=== PATIENT | female | born 1945 | race Caucasian/White ===

== ENCOUNTER 2017-01-07 21:19 | Observation (INO) | payer OTHER ==
--- NOTE | 2017-01-07 21:26 | EDPHY ---
H & P Stated Complaint: CP worse with breathing in and SOB since 3pm today - Personal History Current Tetanus/Diphtheria Vaccine: Unsure Current Tetanus Diphtheria and Acellular Pertussis (TDAP): Unsure - Medical/Surgical History Hx Asthma: No Hx Chronic Respiratory Disease: No Hx Diabetes: No Hx Cardiac Disease: No Hx Renal Disease: No Hx Cirrhosis: No Hx Alcoholism: No Hx HIV/AIDS: No Hx Splenectomy or Spleen Trauma: No Other PMH: MEDICAL- TRANSIENT GLOBAL AMNESIA. SURGICAL- "CERVICAL HERNIATION REPLACED W/ HIP BONE" - Social History Smoking Status: Former smoker Time Seen by Provider: 01/07/17 21:25 Constitutional: Initial Vital Signs Temperature (C) 36.5 C 01/07/17 21:20 Heart Rate 82 01/07/17 21:20 Respiratory Rate 18 01/07/17 21:20 Blood Pressure 139/86 H 01/07/17 21:20 O2 Sat (%) 96 01/07/17 21:20 O2 Delivery Mode Room Air O2 (L/minute) 2 Allergies/Adverse Reactions: No Known Allergies Allergy (Verified 01/07/17 21:22) Home Medications: Medication Instructions Recorded Aspirin 81mg (OTC) 12/25/13 Losartan Potassium 01/07/17 VITAMIN D 01/07/17 Medical Decision Making - Diagnostics Imaging: CT angiogram of chest; no evidence of pulmonary embolism. No pneumonia. Mildly dilated ascending aorta at 4.1 cm with no evidence of dissection or aneurysm. This is otherwise a normal study. Results were discussed with staff radiologist Dr. Chase Marks. (Sanjay Francis) ED Course/Re-evaluation: CHIEF COMPLAINT: Chest pain. HISTORY OF PRESENT ILLNESS: The patient is a 71-year-old female who presents with chest pain. She developed the pain earlier today while walking in the wind. As the day progressed the pain worsened and she found it harder to catch her breath. The pain radiates into her neck. It is described as a pressure. She also has pain with deep breathing. She denies inhaling anything today while in the wind. No recent international travel. She took 2 full strength aspirin for the pain. REVIEW OF SYSTEMS: A 10 point review of systems was performed and is negative with the exception of the elements mentioned in the history of present illness. PHYSICAL EXAM: HR, BP, O2 Sat, RR. Temp noted General Appearance: Alert, well hydrated, appropriate, and non-toxic appearing. Head: Atraumatic without scalp tenderness or obvious injury Eyes: Pupils equal, round, reactive to light and accommodation, EOMI, no trauma , no injection. Ears: Clear bilaterally, no perforation, normal landmarks Nose: Atraumatic, no rhinorrhea, clear. Throat: There is no erythema or exudates, no lesions, normal tonsils, mucus membranes moist. Neck: Supple, 2+ carotid upstroke, nontender, no lymphadenopathy. Respiratory: No retractions, no distress, no wheezes, and no accessory muscle use. Lungs are clear to auscultation bilaterally. Cardiovascular: Regular rate and rhythm, no murmurs, rubs, or gallops. Bilateral carotid, radial, dorsalis pedis, and posterior tibial pulses intact. Good capillary refill all extremities. Gastrointestinal: Abdomen is soft, nontender, non-distended, no masses, no rebound, no guarding, no peritoneal signs. Musculoskeletal: Normal active ROM of all extremities, atraumatic. Neurological: Alert, appropriate, and interactive. The patient has normal DTRs and non-focal cranial nerves, motor, sensory, and cerebellar exam. Skin: No rashes, good turgor, no nodules on palpation. Past medical history: Transient global amnesia. Past surgical history: Cervical herniation. Family history: Her brother had aortic and mitral valve replacement. No heart attacks. Hypertension. Social history: . DIAGNOSTICS/PROCEDURES/CRITICAL CARE TIME: The 12 lead EKG was interpreted by myself. See hard copy and/or "tracemaster" electronic copy for interpretation. Sinus rhythm. Study: PA and Lateral Chest X-ray Indication: Chest pain Results: I viewed the images myself on the PACS system. The radiologist interpretation is pending at the time of this dictation. Study: CTA of the chest. Indication: Chest pain. Results: ____ The study was read by the radiologist, . I viewed the images myself on the PACS system. DIFFERENTIAL DIAGNOSIS: The differential diagnosis for the patient's chest pain included but was not limited to myocardial ischemia, pulmonary embolus, chest wall pain, pleural inflammation, and pulmonary infectious causes. MEDICAL DECISION MAKIN-year-old female with no primary cardiac history presents with chest pain that began earlier today. The pain is described as a pressure and she also has pain with deep breathing and difficulty drawing a breath. An IV was established and labs ordered. We will obtain an EKG and chest x-ray. She has no family cardiac history and is a nonsmoker. BNP elevated at 134. WBC elevated at 13.74. CTA of the chest ordered. This patient still has mild chest pressure but it is exacerbated with exhales more than inhale. Angio of the chest is pending. Dr. Francis will interpret the results. Regardless of the results I believe this patient needs to come in the hospital and get a full rule out if the angio is negative. (Shoaib Arrington) I took over care of this patient at 10:30 p.m.. We are awaiting a CT chest pulmonary angiogram. 11:00 p.m., results of CT angiogram discussed with the patient and family. Plan for admission reviewed. All of their questions were answered. 11:05 p.m., discussed case with hospitalist, Dr. Darling. Patient accepted for admission to the hospitalist service [facility] telemetry observation for rule out. Patient's remaining emergency department course under my care uneventful. Patient admitted in stable and improved condition. (Sanjay Francis) - Data Points Laboratory Results: Laboratory Results 01/07/17 21:30 01/07/17 21:30 01/07/17 01/07/17 21:30 21:30 WBC 13.74 10^3/uL H 10^3/uL (3.80-9.50) RBC 4.50 10^6/uL 10^6/uL (4.18-5.33) Hgb 14.4 g/dL g/dL (12.6-16.3) Hct 41.7 % % (38.0-47.0) MCV 92.7 fL fL (81.5-99.8) MCH 32.0 pg pg (27.9-34.1) MCHC 34.5 g/dL g/dL (32.4-36.7) RDW 13.6 % % (11.5-15.2) Plt Count 241 10^3/uL 10^3/uL (150-400) MPV 9.9 fL fL (8.7-11.7) Neut % (Auto) 69.4 % % (39.3-74.2) Lymph % (Auto) 22.3 % % (15.0-45.0) Greer % (Auto) 6.4 % % (4.5-13.0) Eos % (Auto) 0.9 % % (0.6-7.6) Baso % (Auto) 0.6 % % (0.3-1.7) Nucleat RBC Rel Count 0.0 % % (0.0-0.2) Absolute Neuts (auto) 9.54 10^3/uL H 10^3/uL (1.70-6.50) Absolute Lymphs (auto) 3.06 10^3/uL H 10^3/uL (1.00-3.00) Absolute Monos (auto) 0.88 10^3/uL H 10^3/uL (0.30-0.80) Absolute Eos (auto) 0.13 10^3/uL 10^3/uL (0.03-0.40) Absolute Basos (auto) 0.08 10^3/uL 10^3/uL (0.02-0.10) Absolute Nucleated RBC 0.00 10^3/uL 10^3/uL (0-0.01) Immature Gran % 0.4 % % (0.0-1.1) Immature Gran # 0.05 10^3/uL 10^3/uL (0.00-0.10) Sodium 137 mEq/L mEq/L (134-144) Potassium 3.9 mEq/L mEq/L (3.5-5.2) Chloride 102 mEq/L mEq/L (97-110) Carbon Dioxide 25 mEq/l mEq/l (22-31) Anion Gap 10 mEq/L mEq/L (8-16) BUN 18 mg/dL mg/dL (7-23) Creatinine 0.9 mg/dL mg/dL (0.6-1.0) Estimated GFR > 60 Glucose 104 mg/dL H mg/dL (70-100) Calcium 9.7 mg/dL mg/dL (8.5-10.4) Troponin I 0.014 ng/mL ng/mL (0-0.034) NT-Pro-B Natriuret Pep 134 pg/mL H pg/mL (0-125) Departure - Departure Disposition: [facility] Inpatient Acute Clinical Impression: Chest pain Qualifiers: Chest pain type: unspecified Qualified Code(s): R07.9 - Chest pain, unspecified Additional Instructions: Call Dr. Morgan, cardiology, tomorrow to set up a follow up appointment. You can ask your doctor about PCSK9 inhibitors as we discussed. Return to the emergency department for any serious worsening of condition. Report Scribed for: Shoaib Arrington Report Scribed by: Shiraz Grimes Date of Report: 01/07/17 Time of Report: 21:57
--- NOTE | 2017-01-07 21:35 | CPEKG ---
Heart Rate: 57 RR Interval: 1053 P-R Interval: 196 QRSD Interval: 90 QT Interval: 444 QTC Interval: 433 P [place]: 61 QRS [place]: -41 T Wave [place]: 32 EKG Severity - OTHERWISE NORMAL ECG - EKG Impression: SINUS RHYTHM EKG Impression: LEFT AXIS DEVIATION Electronically Signed By: Shoaib Arrington 07-Jan-2017 22:11:09
[2017-01-07 21:44] LABS: % IMMATURE GRANULYOCYTES 0.4 % (0.0-1.1); ABSOLUTE IMMATURE GRANULOCYTES 0.05 10^3/uL (0.00-0.10); ADD DIFF? NO; ADD MORPH? NO; ADD SCAN? NO; ATYPICAL LYMPHOCYTE FLAG 0 (0-99); FRAGMENT RBC FLAG 0 (0-99); HEMATOCRIT 41.7 % (38.0-47.0); HEMOGLOBIN 14.4 g/dL (12.6-16.3); LEFT SHIFT FLG 0 (0-99); LIPEMIA HEMOLYSIS FLAG 90 (0-99); MEAN CELL HEMOGLOBIN CONCENTR. 34.5 g/dL (32.4-36.7); MEAN CELL VOLUME 92.7 fL (81.5-99.8); MEAN PLATELET VOLUME 9.9 fL (8.7-11.7); PLATELET CLUMPS FLAG 0 (0-99); PLATELET COUNT 241 10^3/uL (150-400); RED CELL DISTRIBUTION WIDTH 13.6 % (11.5-15.2)
[2017-01-07 22:01] LABS: ANION GAP 10 mEq/L (8-16); CALCIUM 9.7 mg/dL (8.5-10.4); CARBON DIOXIDE 25 mEq/l (22-31); CHLORIDE 102 mEq/L (97-110); CREATININE 0.9 mg/dL (0.6-1.0); GLOMERULAR FILTRATION RATE > 60; GLUCOSE 104 mg/dL (70-100); POTASSIUM 3.9 mEq/L (3.5-5.2); SODIUM 137 mEq/L (134-144)
[2017-01-07 22:13] LABS: TROPONIN I 0.014 ng/mL (0-0.034)
[2017-01-07] MEDS ORDERED: IOPAMIDOL (ISOVUE-370) 150 ML BTL IV ONE ×2 (22:23→22:27)
--- NOTE | 2017-01-08 01:23 | GHP ---
DATE OF ADMISSION: 01/07/2017 CHIEF COMPLAINT: Chest pain. HISTORY OF PRESENT ILLNESS: A 71-year-old female with limited past medical history who presents wit h sudden onset of neck and chest tightness after taking a walk in high wind cool weather conditions. Patient reports that she is quite active with frequent extensive exertional activities either on f oot or by bike. Denies any preceding episodes of chest discomfort with this exercise activity. Bradshaw s occasionally experience shortness of breath, which resolves with rest. Patient describes darby hamlin from her walk today in the high wind condition experiencing a tightening of her throat, which then spread across her chest. The tightness remained and prompted her presentation to the emergency dep artment. Patient reports even remnant tightness across her entire chest, left to right, including h er throat during our interview. Was associated with some shortness of breath. Reports it is slight ly position, worse when she lies down, improved when she is sitting up. Denies any associated cough , any recent subjective fevers or chills, myalgias, sore throat, rhinorrhea, headache, vision change s, nausea, vomiting, diarrhea, dysuria, hematuria, or blood in her stools. Patient has not had a st ress test in the past. She has been told she has a murmur but does not recall having an echocardiog billie performed. Patient denies any recent lower extremity edema. PAST MEDICAL HISTORY: 1. Arthritis. 2. Borderline hypertension. SOCIAL HISTORY: Negative for tobacco. Wine occasionally with dinner. Denies marijuana or illicit drugs. FAMILY HISTORY: Positive for heart disease in the father's side of the family. However, her father did live to his 90s. ADVANCED DIRECTIVES: Patient is full cor, full tube. Her would be her medical decision denise er. REVIEW OF SYSTEMS: A 10-point review of systems is negative with the exception of that reported in the HPI. PHYSICAL EXAMINATION: VITAL SIGNS: Blood pressure 138/87, heart rate 73, respiratory rate 16, 96% on 0.5 L, 36.6. GENERAL: This is a very healthy-appearing middle-aged female in no acute distress. HEENT: Notable for moist mucous membranes. Eye exam is negative for any icterus. CARDIAC: Jada ent is regular rate and rhythm. Loud systolic murmur is heard best at the right upper sternal borde r. GASTROINTESTINAL: Positive bowel sounds. ABDOMEN: Soft, and nontender to palpation in all 4 q uadrants. MUSCULOSKELETAL: Negative for any lower extremity edema. SKIN: Negative for any rashes . NEUROLOGIC: She is alert and oriented x3. PSYCHIATRIC: She is pleasant and cooperative on inte rview and examination. DATA: White count 13.7, hematocrit 41.7, platelets of 241. Troponin 0.014. Creatinine 0.9. EKG, which I personally reviewed and interpreted, shows sinus rhythm, leftward axis deviation, with no ac juan m ST-T changes. Chest x-ray shows no acute cardiopulmonary disease. ASSESSMENT AND PLAN: This is a 71-year-old female presenting with chest tightness/pain. 1. Acute chest pain. Patient have limited cardiac risk factors including borderline hypertension. My suspicion for acute cardiac ischemia is low. Will admit the patient for serial troponins and EK Gs. If patient rules out overnight, I think she is a good candidate for cardiac stress testing. 2. Acute shortness of breath. This is associated with chest tightness but patient describes that i t is worse when lying flat. I do note murmur on examination that she reports was barely audible by other practitioners. Will order a transthoracic echocardiogram to rule valvular disease out as a po ssible causative or contributor to her acute presentation. 3. Borderline hypertension. Will continue her home dosing of low-dose losartan. 4. Prophylaxis: Patient is ambulating. 5. Diet: Cardiac. DISPOSITION: I expect in less than 2 midnights the patient's stress testing is negative. I have di scussed the case with the emergency room physician. Patient will be triaged to [facility] for cardiac mon itoring. /[id number]/MODL
--- NOTE | 2017-01-08 03:33 | CPEKG ---
Heart Rate: 73 RR Interval: 822 P-R Interval: 192 QRSD Interval: 86 QT Interval: 428 QTC Interval: 472 P [place]: 63 QRS [place]: -48 T Wave [place]: 38 EKG Severity - ABNORMAL ECG - EKG Impression: SINUS RHYTHM EKG Impression: ATRIAL PREMATURE COMPLEX EKG Impression: LEFT ANTERIOR FASCICULAR BLOCK EKG Impression: ABNRM R PROG, CONSIDER ASMI OR LEAD PLACEMENT Preliminary Awaiting MD Review
[2017-01-08 12:42] VITALS: BP 110/70; PULSE 72; RESP 18; TEMP 97.9; O2SAT 96
--- NOTE | 2017-01-08 12:52 | CPR ---
DATE OF PROCEDURE: 01/08/2017 PROCEDURE: Treadmill stress test. INDICATIONS FOR PROCEDURE: Treadmill stress test done to evaluate chest discomfort related to brisk walking in a stiff wind yesterday causing a lung burning sensation. She has no cardiac risk factors. FINDINGS: Resting EKG shows a regular sinus rhythm with a rate of 71 beats per minute. Resting blood pressure 108/60. She is asymptomatic at rest. TREADMILL PORTION: She was exercised according to the Lion protocol for a total of 9 minutes and 11 seconds. She reached her 85% maximal heart rate of 128. Exercise blood pressure 170/80. She could feel the lung burning discomfort sensation with increased inhalation, but there were no EKG changes. RECOVERY: She recovered spontaneously with no EKG changes. Resting heart rate 82, resting blood pressure 110/80 at 4 minutes post exercise. The discomfort appears to be related to her lungs with heavy inhalation. At this time, she is stable to return to her room. SUMMARY: Normal exercise treadmill test. /[id number]/MODL MTDD
[2017-01-08] MEDS ORDERED: ASPIRIN 325 MG TAB PO PRN (13:26)
--- NOTE | 2017-01-08 15:16 | ECHO ---
[id number] + + [address] : : [place] [address] : : [phone] + + Adult Echocardiographic Report + --+ :Name: STEVAN SCOTT Raquely Date: 01/08/2017 09:35 AM : : Hospital Admission Number: [id number] : :: 1945 Gender: Female Height: 66 in : :Age: 71 yrs Race: WH Weight: 135 lb : : : : BSA: 1.7 meter s2: :History: Murmur : + --+ MMode/2D Measurements \T\ Calculations IVSd: 0.88 cm LVIDd: 3.9 cm FS: 47.6 % Ao root diam: 3.1 cm LVPWd: 0.94 cm LVIDs: 2.0 cm EDV(Teich): 65.5 ml ACS: 1.4 cm ESV(Teich): 13.4 ml LA dimension: 2.8 cm EF(Teich): 79.6 % LVOT diam: 1.9 cm LVOT area: 2.8 cm2 Normal Measurement Values: + + :LVIDd (3.5-5.7cm) IVSd (0.6-1.1cm) LVPWd (0.6-1.1cm) Aortic Root (2.0-3.7cm)Left Atrium (1.5-4.0cm): :LV Vol(d) (76-115ml) LV Vol(s) (29-48ml) Ejec Fraction (50-65%)PV Claudy (0.6- 1.2m/s) TV Claudy (0.4-1.0m/s) : :MV E Claudy (0.8-1.0m/s)MV A Claudy (0.3-1.0m/s)LVOT Claudy (0.7-1.2m/s) Asc Ao Claudy ( 0.9-1.8m/s) : + + Doppler Measurements \T\ Calculations MV E max claudy: Ao V2 max: AI max claudy: LV V1 max: 80.0 cm/sec 180.0 cm/sec 355.0 cm/sec 148.0 cm/sec MV A max claudy: Ao max PG: AI max P.4 mmHgLV V1 max P.5 cm/sec 13.0 mmHg AI dec slope: 8.8 mmHg MV E/A: 1.1 LV V1 mean PG: LINDA(V,D): 2.3 cm2 97.9 cm/sec2 6.0 mmHg AI P1/2t: 1062 msec LV V1 mean: 112.0 cm/sec LV V1 VTI: 32.7 cm SV(LVOT): 92.7 ml PA V2 max: 90.9 cm/sec PA max P.3 mmHg Left Ventricle The left ventricle is normal in size. There is normal left ventricular wall thickness. The left ventricular ejection fraction is normal. There is Doppler evidence for diastolic dysfunction. Ejection Fraction = 79%. The left ventricular wall motion is normal. Right Ventricle The right ventricle is normal in size and function. Atria The left atrial size is normal. Right atrial size is normal. Mitral Valve The mitral valve is normal. There is no evidence of mitral valve prolapse. There is no mitral valve stenosis. There is trace to mild mitral regurgitation. Tricuspid Valve Normal tricuspid valve. No tricuspid regurgitation. Aortic Valve The aortic valve is trileaflet. There is no aortic stenosis. Mild aortic regurgitation. Pulmonic Valve The pulmonic valve is normal in structure and function. There is no pulmonic valvular regurgitation. Great Vessels The aortic root is normal size. Pericardium/Pleural There is no pericardial effusion. Conclusion A complete two-dimensional transthoracic echocardiogram was performed (2D, M-mode, Doppler and color flow Doppler). The left ventricular ejection fraction is normal. There is Doppler evidence for diastolic dysfunction. Ejection Fraction = 79%. The left ventricular wall motion is normal. The right ventricle is normal in size and function. The mitral valve is normal. There is trace to mild mitral regurgitation. Normal tricuspid valve The aortic valve is trileaflet. Mild aortic regurgitation. There is no pericardial effusion. Final Reading Physician: Frantz Walker signed on 01/08/2017 03:15 PM Ordering Physician: Melissa Darling Performed By: Castillo Scott, BRUCECS
--- NOTE | 2017-01-08 22:32 | GDS ---
DISCHARGE DIAGNOSES: 1. Atypical chest pain. 2. Shortness of breath, resolved. 3. Borderline hypertension, stable. HISTORY: For details, please see dictated history and physical dated January 08, [address] Melissa hillman. In brief, the patient is a 71-year-old female with a history of arthritis and borderline hype rtension, who presents to the emergency department with chest tightness and shortness of breath afte r walking outside in high wind conditions. She is admitted to the hospital for further evaluation o f her atypical chest pain. HOSPITAL COURSE: Patient was admitted to the observation unit. She had negative troponins x3. Her chest x-ray shows mild peribronchial thickening and minimal linear atelectasis, but no pneumothorax , edema, consolidation or effusion. She also underwent CT pulmonary angiogram, which was negative f or pulmonary embolism or acute dissection. She had a mildly dilated ascending aorta, which will nee d intermittent surveillance. Her lungs were otherwise clear with minimal airway disease. There was no evidence of pneumonia. Heart murmur was detected on exam. The patient had an echocardiogram wh ich showed a normal left ventricular systolic function with ejection fraction of 79%. There was Dop pler evidence for diastolic dysfunction, no significant valve disease was noted. There was no peric ardial effusion. Her EKG was nonischemic. Her vital signs remained stable. It is possible she was having some reactive airway symptoms given the high winds, which may have contributed to some airwa y irritation. It seems there were no sinister causes of her chest pain; therefore, she was deemed s table for discharge. DISPOSITION: Patient is discharged home in stable condition. FOLLOWUP: She should follow up with her primary care physician, Dr. America Walsh, if her symptoms do not improve, and she is to return to the emergency department if she has any worsening of her sy mptoms. DISCHARGE MEDICATIONS: Please see Relayr for complete updated outpatient medication list. There are no new medications at discharge. I did offer her an albuterol inhaler, which she declined. /[id number]/MODL
[2017-01-09] MEDS ORDERED: CHOLECALCIFEROL VIT D3 1,000 UNITS TAB PO SCH (09:00)
[2017-01-10] MEDS ORDERED: LOSARTAN POTASSIUM 25 MG TAB PO SCH (09:00)
== END 2017-01-08 16:47 | disposition home or self-care (01) ==
LOC: F1N 23:37
PROVIDERS: ADMIT Hospitalist; ATTEND Hospitalist
DX: R07.89 Other chest pain (principal); R06.02 Shortness of breath; I10 Essential (primary) hypertension
CPT/HCPCS: 71020; 71275; 93005; 93017; 93306; G0378; Q9967

== ENCOUNTER → 2017-04-05 | Outpatient (CLI) | payer OTHER | LOC: FIMAGING 10:51 | PROVIDERS: ATTEND Family Medicine | DX: Z13.820 Encounter for screening for osteoporosis (principal); M85.80 Other specified disorders of bone density and structure, unspecified site; N95.9 Unspecified menopausal and perimenopausal disorder ==

== ENCOUNTER → 2018-10-21 | Outpatient (CLI) | payer OTHER ==
[~2018-10-21] MED LIST: IOPAMIDOL (ISOVUE-300) 100 ML BTL ONE
== END ==
LOC: FIMAGING 14:41
PROVIDERS: ATTEND Internal Medicine Cardiovascular Disease
DX: I77.810 Thoracic aortic ectasia (principal)
CPT/HCPCS: 71275; Q9967